=== PATIENT | male | born 1965 | race Caucasian/White ===

== ENCOUNTER 2017-01-03 07:39 | Emergency (ER) | payer BC ==
--- NOTE | 2017-01-03 08:24 | ERPHSYRPT ---
- History of Present Illness Time Seen by Provider: 01/03/17 08:13 Historian: patient Exam Limitations: no limitations Patient Subjective Stated Complaint: pt here for right sided abd pain started sudden at 0700 last night, is being ruled out for gallbladder,is due for hida scan tomorrow, nauseated,no fever Triage Nursing Assessment: pt alert,walked in, resp easy,abd soft, sin w/d, abd tender to touch to right side. Physician History: The patient is a 51-year-old male with his complaining of worsening right upper quadrant abdominal pain this morning. He was severely nauseated but did not vomit. He took Prilosec and Aleve and feels better now. He's had abdominal pain intermittently for 2 weeks. He was seen at [facility] 2 weeks ago and the abdominal CT scan was performed that was negative. He was then seen in [place] for an abdominal ultrasound that was negative. He is scheduled for a HIDA scan tomorrow at [facility]. He occasionally drinks alcohol. His past medical history is significant for diabetes, high cholesterol , and abdominal pain. He denies kidney stones. Timing/Duration: week(s) (2), intermittent, worse Activities at Onset: none Quality: stabbing Abdominal Pain Onset Location: RUQ Pain Radiation: back Severity of Pain-Max: severe Severity of Pain-Current: moderate Modifying Factors: Improves With: analgesics, antacids Associated Symptoms: nausea, No testicular pain, No vomiting Previous symptoms: same symptoms as today, recently seen Allergies/Adverse Reactions: No Known Drug Allergies Allergy (Unverified 01/03/17 07:51) Home Medications: Atorvastatin Calcium [Lipitor] 10 mg DAILY 01/03/17 [History] Hydrocodone Bit/Acetaminophen [[place] 5-325 Tablet] 1 ea Q6H PRN PRN 01/03/17 [ History] Metformin HCl 500 mg [Glucophage 500 MG] 500 mg BID 01/03/17 [History] Omeprazole [Prilosec] 40 mg DAILY 01/03/17 [History] Hx Tetanus, Diphtheria Vaccination/Date Given: Yes Hx Influenza Vaccination/Date Given: Yes Hx Pneumococcal Vaccination/Date Given: No Immunizations Up to Date: Yes - Review of Systems Constitutional: No Fever, No Chills Eyes: No Symptoms Ears, Nose, & Throat: No Symptoms Respiratory: No Cough, No Dyspnea Cardiac: No Chest Pain, No Edema, No Syncope Abdominal/Gastrointestinal: Abdominal Pain (RUQ), Nausea, No Vomiting Genitourinary Symptoms: No Dysuria Musculoskeletal: No Back Pain, No Neck Pain Skin: No Rash Neurological: No Dizziness, No Focal Weakness, No Sensory Changes Psychological: No Symptoms Endocrine: No Symptoms Hematologic/Lymphatic: No Symptoms Immunological/Allergic: No Symptoms All Other Systems: Reviewed and Negative - Past Medical History Pertinent Past Medical History: Yes Endocrine Medical History: Diabetes Type II - Past Surgical History Past Surgical History: Yes Other Surgical History: tear duct surgery x2 - Social History Smoking Status: Never smoker Exposure to second hand smoke: No Drug Use: none Patient Lives Alone: No - Nursing Vital Signs Nursing Vital Signs: Initial Vital Signs Temperature 97.8 F 01/03/17 07:45 Pulse Rate 53 L 01/03/17 07:45 Respiratory Rate 16 01/03/17 07:45 Blood Pressure 130/89 01/03/17 07:45 O2 Sat by Pulse Oximetry 98 01/03/17 07:45 Pain Scale Pain Intensity 4 - Physical Exam General Appearance: no apparent distress Eye Exam: PERRL/EOMI, eyes nml inspection Ears, Nose, Throat Exam: normal ENT inspection, pharynx normal, moist mucous membranes Neck Exam: normal inspection, non-tender, supple, full range of motion Respiratory Exam: normal breath sounds, lungs clear, No respiratory distress Cardiovascular Exam: regular rate/rhythm, normal heart sounds Gastrointestinal/Abdomen Exam: tenderness (RUQ), No guarding Rectal Exam: not done Back Exam: normal inspection, normal range of motion, No CVA tenderness, No vertebral tenderness Extremity Exam: normal inspection, normal range of motion, pelvis stable Neurologic Exam: alert, oriented x 3, cooperative, normal mood/affect, nml cerebellar function, sensation nml, No motor deficits Skin Exam: normal color, warm, dry SpO2 Interpretation: normal SpO2: 98 Oxygen Delivery: Room Air - CT Exams Abdomen/Pelvis CT Interpretation: Tele-radiologist Report, No appendicitis, Other (3 mm right urinary bladder calculus without obstructive uropathy per DR Sloan. Fecal stasis.) Ordered Tests: Active Orders 24 hr Category Date Time Status IV Insertion STAT Care 01/03/17 08:29 Active Strain Urine .as ordered Care 01/03/17 11:09 Ordered ABDOMEN AND PELVIS W/0 CONTRAS [CT] Stat Exams 01/03/17 10:03 Completed CBC W DIFF Stat Lab 01/03/17 08:09 Completed CMP Stat Lab 01/03/17 08:09 Completed CULTURE,URINE Stat Lab 01/03/17 09:20 Received LIPASE Stat Lab 01/03/17 08:09 Completed TROPONIN Q3H Lab 01/03/17 08:09 Completed UA W/ MICROSCOPIC Stat Lab 01/03/17 09:20 Completed Medication Summary Discontinued Medications Generic Name Dose Route Start Last Admin Trade Name Davidson PRN Reason Stop Dose Admin Morphine Sulfate 4 mg 01/03/17 08:29 01/03/17 08:38 Morphine Sulfate 4 Mg Inj IV 01/03/17 08:30 4 mg STAT ONE Administration Morphine Sulfate Confirm 01/03/17 08:34 Morphine Sulfate 4 Mg Inj Administered 01/03/17 08:35 Dose 4 mg .ROUTE .STK-MED ONE Ondansetron HCl 4 mg 01/03/17 08:29 01/03/17 08:39 Zofran 4 Mg/2 Ml Vial IV 01/03/17 08:30 4 mg STAT ONE Administration Ondansetron HCl Confirm 01/03/17 08:34 Zofran 4 Mg/2 Ml Vial Administered 01/03/17 08:35 Dose 4 mg .ROUTE .STK-MED ONE Lab/Rad Data: Laboratory Result Diagrams 01/03/17 08:09 01/03/17 08:09 Laboratory Results 01/03/17 01/03/17 01/03/17 Range/Units 09:20 08:09 08:09 WBC (4.0-10.5) K/mm3 RBC (4.1-5.6) M/mm3 Hgb (12.5-18.0) gm/dl Hct (42-50) % MCV (78-100) fl MCH (26-32) pg MCHC (32-36) g/dl RDW (11.5-14.0) % Plt Count (150-450) K/mm3 MPV (6-9.5) fl Gran % (36.0-66.0) % Lymphocytes % (24.0-44.0) % Monocytes % (0.0-12.0) % Eosinophils % (0.00-5.0) % Basophils % (0.0-0.4) % Basophils # (0-0.4) Sodium 143 (136-145) mEq/L Potassium 4.0 (3.5-5.1) mEq/L Chloride 104 (98-107) mEq/L Carbon Dioxide 30.8 (21-32) mEq/L Anion Gap 12.3 (5-15) MEQ/L BUN 12 (9-20) mg/dL Creatinine 0.90 (0.55-1.30) mg/dl Estimated GFR > 60 ML/MIN Glucose 137 H (70-110) MG/DL Calcium 9.1 (8.5-10.1) mg/dL Total Bilirubin 0.90 (0.2-1.0) mg/dL AST 17 (15-37) U/L ALT 21 (12-78) U/L Alkaline Phosphatase 79 (46-116) U/L Troponin I < 0.017 (0.000-0.056) ng/ml Serum Total Protein 7.3 (6.4-8.2) gm/dL Albumin 4.1 (3.4-5.0) g/dL Lipase 163 (73-393) U/L Ur Collection Type VOID Urine Color YELLOW (YELLOW) Urine Appearance CLEAR (CLEAR) Urine pH 5.0 (5-6) Ur Specific [place] 1.010 (1.005-1.025) Urine Protein NEGATIVE (Negative) Urine Ketones NEGATIVE (NEGATIVE) Urine Blood 250 (0-5) Craig/ul Urine Nitrite NEGATIVE (NEGATIVE) Urine Bilirubin NEGATIVE (NEGATIVE) Urine Urobilinogen NORMAL (0-1) mg/dL Ur Leukocyte Esterase TRACE (NEGATIVE) Urine Microscopic RBC 25-50 (0-2) /HPF Urine Microscopic WBC 0-2 (0-5) /HPF Urine Bacteria FEW (NEGATIVE) /HPF Urine Mucus SLIGHT (NEGATIVE) /HPF Urine Glucose NEGATIVE (NEGATIVE) mg/dL Specimen Received 01/03/17 0920 01/03/17 Range/Units 08:09 WBC 6.7 (4.0-10.5) K/mm3 RBC 5.46 (4.1-5.6) M/mm3 Hgb 15.3 (12.5-18.0) gm/dl Hct 45.0 (42-50) % MCV 82.4 (78-100) fl MCH 28.0 (26-32) pg MCHC 34.0 (32-36) g/dl RDW 13.2 (11.5-14.0) % Plt Count 256 (150-450) K/mm3 MPV 9.6 H (6-9.5) fl Gran % 50.0 (36.0-66.0) % Lymphocytes % 36.9 (24.0-44.0) % Monocytes % 11.8 (0.0-12.0) % Eosinophils % 1.2 (0.00-5.0) % Basophils % 0.1 (0.0-0.4) % Basophils # 0.01 (0-0.4) Sodium (136-145) mEq/L Potassium (3.5-5.1) mEq/L Chloride (98-107) mEq/L Carbon Dioxide (21-32) mEq/L Anion Gap (5-15) MEQ/L BUN (9-20) mg/dL Creatinine (0.55-1.30) mg/dl Estimated GFR ML/MIN Glucose (70-110) MG/DL Calcium (8.5-10.1) mg/dL Total Bilirubin (0.2-1.0) mg/dL AST (15-37) U/L ALT (12-78) U/L Alkaline Phosphatase (46-116) U/L Troponin I (0.000-0.056) ng/ml Serum Total Protein (6.4-8.2) gm/dL Albumin (3.4-5.0) g/dL Lipase (73-393) U/L Ur Collection Type Urine Color (YELLOW) Urine Appearance (CLEAR) Urine pH (5-6) Ur Specific [place] (1.005-1.025) Urine Protein (Negative) Urine Ketones (NEGATIVE) Urine Blood (0-5) Craig/ul Urine Nitrite (NEGATIVE) Urine Bilirubin (NEGATIVE) Urine Urobilinogen (0-1) mg/dL Ur Leukocyte Esterase (NEGATIVE) Urine Microscopic RBC (0-2) /HPF Urine Microscopic WBC (0-5) /HPF Urine Bacteria (NEGATIVE) /HPF Urine Mucus (NEGATIVE) /HPF Urine Glucose (NEGATIVE) mg/dL Specimen Received - Progress Progress: improved Counseled pt/family regarding: lab results, diagnosis, need for follow-up, rad results - Departure Time of Disposition: 11:14 Departure Disposition: Home Clinical Impression: Kidney stone on right side Condition: Stable Critical Care Time: No Additional Instructions: This morning you had a kidney stone on the right side. The stone measured [address] scan. You were given morphine 4 mg, Zofran 4 mg, and Toradol 30 mg by IV. The CT scan did not show any abnormality of your gallbladder today. Follow up tomorrow as scheduled for your next evaluation.
[2017-01-03] MEDS ORDERED: MORPHINE SULFATE 4 MG INJ IV ONE (08:29)
[2017-01-03] MEDS ORDERED: Zofran 4 MG/2 ML VIAL IV ONE (08:29)
[2017-01-03] MEDS ORDERED: MORPHINE SULFATE 4 MG INJ ONE (08:34)
[2017-01-03] MEDS ORDERED: Zofran 4 MG/2 ML VIAL ONE (08:34)
[2017-01-03 08:38] LABS: BASOPHIL % 0.1 % (0.0-0.4); Eosinophil % 1.2 % (0.00-5.0); Lymphocytes % 36.9 % (24.0-44.0); Mean Cell Volume 82.4 fl (78-100); Mean Platelet Volume 9.6 fl (6-9.5); Monocytes % 11.8 % (0.0-12.0); Platelet Count 256 K/mm3 (150-450); Red Blood Count 5.46 M/mm3 (4.1-5.6); Red Cell Distribution Width 13.2 % (11.5-14.0); White Blood Count 6.7 K/mm3 (4.0-10.5)
[2017-01-03 08:49] LABS: ALBUMIN 4.1 g/dL (3.4-5.0); ALKALINE PHOSPHATASE 79 U/L (46-116); ANION GAP 12.3 MEQ/L (5-15); BLOOD UREA NITROGEN 12 mg/dL (9-20); CHLORIDE 104 mEq/L (98-107); Carbon Dioxide 30.8 mEq/L (21-32); Glucose 137 MG/DL (70-110); LIPASE 163 U/L (73-393); SGOT/AST 17 U/L (15-37); SGPT/ALT 21 U/L (12-78); SODIUM 143 mEq/L (136-145); Total Protein 7.3 gm/dL (6.4-8.2)
[2017-01-03 09:53] LABS: Bilirubin NEGATIVE (NEGATIVE); Blood 250 Ery/ul (0-5); COMPLETE URINE MICROSCOPIC? YES; Collection Type VOID; Glucose NEGATIVE (NEGATIVE); Leukocyte Esterase TRACE (NEGATIVE)
[2017-01-03 09:54] LABS: ADD URINE CULTURE? YES (NO); Bacteria FEW /HPF (NEGATIVE); Mucus SLIGHT /HPF (NEGATIVE); WBC 0-2 /HPF (0-5)
--- NOTE | 2017-01-03 10:55 | XRAY ---
Indication: Right abdomen pain. Hematuria. Multiple contiguous axial images obtained through the abdomen and pelvis without contrast as ordered. Comparison: None Lung bases are clear. Heart is not enlarged. Noncontrasted stomach and bowel loops appear nonobstructed. Mild diffuse scattered colonic fecal debris throughout. Normal appendix. No free fluid/air. 3 mm right posterior urinary bladder calculus. No hydronephrosis or hydroureter. Remaining liver, gallbladder, pancreas, spleen, adrenal glands, kidneys, ureters, bladder, and aorta appear unremarkable for noncontrast exam. Osseous structures intact with minimal degenerative changes throughout the spine. Impression: 1. 3 mm right urinary bladder calculus without evidence for obstructive uropathy. 2. Fecal stasis without obstruction. 3. Remaining CT abdomen/pelvis without contrast exam is negative. CT DI 20.87
[2017-01-03] MEDS ORDERED: TORAdol 30 mg Injection IV ONE (11:17)
[2017-01-03] MEDS ORDERED: TORAdol 30 mg Injection ONE (11:18)
[2017-01-03 11:44] VITALS: BP 106/68; PULSE 68; O2SAT 97
== END 2017-01-03 11:45 | disposition home or self-care (01) ==
LOC: ED 07:39
DX: N20.0 Calculus of kidney (principal); R10.11 Right upper quadrant pain; E11.9 Type 2 diabetes mellitus without complications; E78.00 Pure hypercholesterolemia, unspecified
CPT/HCPCS: 36000; 36415; 74176; 80053; 81000; 83690; 84484; 85025; 87086; 96374; 96375; 99284; J1885; J2270; J2405

== ENCOUNTER 2018-02-14 16:20 | Emergency (ER) | payer BC ==
[2018-02-14 16:32] VITALS: O2SAT 99
[2018-02-14] MEDS ORDERED: TORAdol 30 mg Injection IM ONE (16:36)
--- NOTE | 2018-02-14 16:40 | ERPHSYRPT ---
- History of Present Illness Time Seen by Provider: 02/14/18 16:37 Source: patient Patient Subjective Stated Complaint: pt slipped on wet floor in garage and landed on left sholder Triage Nursing Assessment: pt alert, walked in , resp easy, skin w/d/p. 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, no loc, no neck pain, no bleeding, no other injury Allergies/Adverse Reactions: No Known Drug Allergies Allergy (Verified 02/14/18 16:31) Home Medications: Metformin HCl 500 mg [Glucophage 500 MG] 500 mg BID 01/03/17 [History] Hx Tetanus, Diphtheria Vaccination/Date Given: Yes Hx Influenza Vaccination/Date Given: Yes Hx Pneumococcal Vaccination/Date Given: No Immunizations Up to Date: Yes - Review of Systems Eyes: No Vision Changes Ears, Nose, & Throat: No Mouth Pain Respiratory: No Dyspnea Cardiac: No Chest Pain Abdominal/Gastrointestinal: No Abdominal Pain Musculoskeletal: Fall, Joint Pain, No Back Pain, No Neck Pain Skin: No Rash, No Skin Lesions Neurological: No Dizziness, No Headache - Past Medical History Pertinent Past Medical History: Yes Endocrine Medical History: Diabetes Type II - Past Surgical History Past Surgical History: Yes Musculoskeletal: Orthopedic Surgery Other Surgical History: tear duct surgery x2 ,right shoulder surgery - Social History Smoking Status: Never smoker Exposure to second hand smoke: No Drug Use: none Patient Lives Alone: No - Nursing Vital Signs Nursing Vital Signs: Initial Vital Signs Temperature 98.5 F 02/14/18 16:23 Pulse Rate 78 02/14/18 16:23 Respiratory Rate 18 02/14/18 16:23 Blood Pressure 138/90 02/14/18 16:23 O2 Sat by Pulse Oximetry 99 02/14/18 16:23 Pain Scale Pain Intensity 8 - Physical Exam General Appearance: no apparent distress Eye Exam: eyes nml inspection Neck Exam: normal inspection, non-tender, supple, full range of motion Respiratory Exam: respiratory distress, No chest tenderness Gastrointestinal/Abdomen Exam: soft, No tenderness Back Exam: normal inspection, No vertebral tenderness Extremity Exam: other (tender left deltoid, rom limited by pain, sen and pulses intact, nontender wrist and elbow) Neurologic Exam: alert, oriented x 3, cooperative, normal mood/affect Skin Exam: warm, dry SpO2 Interpretation: normal SpO2: 99 Oxygen Delivery: Room Air - Course Nursing assessment & vital signs reviewed: Yes - Radiology Exams Shoulder X-ray Interpretation: Discussed w/ radiologist, No Fracture Ordered Tests: Active Orders 24 hr Category Date Time Status SHOULDER Stat Exams 02/14/18 16:55 Completed Medication Summary Discontinued Medications Generic Name Dose Route Start Last Admin Trade Name Freq PRN Reason Stop Dose Admin Ketorolac Tromethamine 60 mg 02/14/18 16:36 02/14/18 16:58 Toradol 30 Mg Injection IM 02/14/18 16:37 60 mg STAT ONE Administration Ketorolac Tromethamine Confirm 02/14/18 16:55 Toradol 30 Mg Injection Administered 02/14/18 16:56 Dose 60 mg .ROUTE .[employer]-MED ONE - Progress Progress: improved Progress Note: 02/14/18 17:10 differential d/w pt as rotator cuff injury, ice and motrin, norco warnings given , see your doctor, return if worse, pt refused a sling Counseled pt/family regarding: diagnosis, need for follow-up, rad results - Departure Time of Disposition: 17:11 Departure Disposition: Home Clinical Impression: Shoulder abrasion Qualifiers: Encounter type: initial encounter Laterality: left Qualified Code(s): S40.212A - Abrasion of left shoulder, initial encounter Condition: Stable Critical Care Time: No Referrals: NATE CARLISLE NP [Primary Care Provider] - Instructions: Shoulder Sprain (DC) Prescriptions: Hydrocodone/APAP 5/325 [[place] 5/325 mg] 1 each PO Q4-6HPRN PRN #20 tablet MDD 4 PRN Reason: Pain
[2018-02-14] MEDS ORDERED: TORAdol 30 mg Injection ONE (16:55)
--- NOTE | 2018-02-14 17:06 | XRAY ---
Indication: Pain following fall. Comparison: None 3 views of the left shoulder demonstrates mild AC degenerative arthropathy. No other bony, articular, or soft tissue abnormalities.
[2018-02-14 17:20] VITALS: BP 125/83; PULSE 64
== END 2018-02-14 17:37 | disposition home or self-care (01) ==
LOC: ED 16:20
DX: S40.212A Abrasion of left shoulder, initial encounter (principal); M25.512 Pain in left shoulder; W01.0XXA Fall on same level from slipping, tripping and stumbling without subsequent striking against object, initial encounter; Y93.9 Activity, unspecified; Y92.008 Other place in unspecified non-institutional (private) residence as the place of occurrence of the external cause
CPT/HCPCS: 73030; 96372; 99284; J1885